=== PATIENT | male | born 1955 | race Caucasian/White ===

== ENCOUNTER 2017-03-24 20:31 | Emergency (ER) | payer OTHER ==
--- NOTE | 2017-03-24 23:44 | ED ---
Laceration/Wound HPI - HPI Summary HPI Summary: weaning himself from Coumadin on the Lovenox in preparation of a colonoscopy-4 weeks ago his INR was to low and his PCP had been increasing his coumadin--- Gave self an injection of Lovenox in right side of abdomen -area has continued to bruise and drip blood all day - History of Current Complaint Chief Complaint: oozing blood from Lovenox injection Stated Complaint: BELLY LAC Time Seen by Provider: 03/24/17 23:20 Hx Obtained From: Patient Mechanism of Injury: Other - injection of Lovenox this morning Onset/Duration: Sudden Onset, Lasting Hours, Still Present Aggravating: Nothing Alleviating: Nothing Timing: Constant Onset Severity: Moderate Current Severity: Mild Pain Intensity: 0 Associated Signs & Symptoms: Bruising Related Hx: Anticoagulat Use - Allergy/Home Medications Allergies/Adverse Reactions: Allergies Allergy/AdvReac Type Severity Reaction Status Date / Time No Known Allergies Allergy Verified 06/10/13 15:14 PMH/Surg Hx/FS Hx/Imm Hx Previously Healthy: No Endocrine/Hematology History: Reports: Hx Anticoagulant Therapy - WARFARIN Denies: Hx Diabetes Cardiovascular History: Reports: Hx Angina - TIGHTNESS IN THE PAST, Hx Hypertension, Hx Pacemaker/ICD - TODAY 08/02/2014, Hx Valvular Heart Disease - MITRAL VALVE REGURGITATION, REPAIR Denies: Hx Coronary Artery Disease, Hx Hypercholesterolemia, Hx Myocardial Infarction Respiratory History: Denies: Hx Asthma, Hx Chronic Obstructive Pulmonary Disease (COPD) - Surgical History Surgery Procedure, Year, and Place: MITRAL VALVE REPAIR 2013 Hx Anesthesia Reactions: No Infectious Disease History: Reports: Hx Hepatitis Denies: Traveled Outside the [place] in Last 30 Days - Family History Known Family History: Positive: Hypertension - Social History Occupation: Employed Full-time Lives: With Family Alcohol Use: Weekly Alcohol Amount: 2 GL WINE Hx Substance Use: No Substance Use Type: Reports: None Smoking Status (MU): Former Smoker Review of Systems Constitutional: Negative Eyes: Negative ENT: Negative Cardiovascular: Negative Respiratory: Negative Gastrointestinal: Negative Genitourinary: Negative Musculoskeletal: Negative Positive: Bruising - 4 cm diameter oozing bruise on right side of abdomen Neurological: Negative Psychological: Normal All Other Systems Reviewed And Are Negative: Yes Physical Exam - Summary Physical Exam Summary: 61 y/o mALE HOW HAS RECENTLY STARTED lOVENOX TO WEAN OFF OF COUMADIN DUE TO UPCOMING COLONOSCOPY, PATIENT GAVE HIMSELF lOVENOX INJECTION TODAY--THE AREA ON THE RIGHT SIDE OF HIS ABDOMEN CONTINUES TO OOZE BLOOD AND IS ABOUT 4 CM IN DIAMETER Triage Information Reviewed: Yes Vital Signs On Initial Exam: Initial Vitals Temp Pulse Resp BP Pulse Ox 98.3 F 60 16 117/70 100 03/24/17 20:55 03/24/17 20:55 03/24/17 20:55 03/24/17 20:55 03/24/17 20:55 Vital Signs Reviewed: Yes Appearance: Positive: Well-Appearing, No Pain Distress, Well-Nourished Skin: Positive: Warm, Skin Color Reflects Adequate Perfusion, Dry, Other - MULTIPLE BRUISES SECONDAY TO lOVENOX IN ABDOMEN Head/Face: Positive: Normal Head/Face Inspection Eyes: Positive: Normal ENT: Positive: Normal ENT inspection, Hearing grossly normal. Negative: Nasal congestion, Nasal drainage, Muffled/hoarse voice, Dental tenderness Neck: Positive: Supple, Nontender, No Lymphadenopathy Respiratory/Lung Sounds: Positive: Clear to Auscultation, Breath Sounds Present Cardiovascular: Positive: Normal, RRR, Pulses are Symmetrical in both Upper and Lower Extremities Abdomen Description: Positive: Nontender, No Organomegaly, Soft Bowel Sounds: Positive: Present Musculoskeletal: Positive: Normal, Strength/ROM Intact Neurological: Positive: Normal, Sensory/Motor Intact, Alert, Oriented to Person Place, Time Psychiatric: Positive: Normal AVPU Assessment: Alert - Gilmar Coma Scale Best Eye Response: 4 - Spontaneous Best Motor Response: 6 - Obeys Commands Best Verbal Response: 5 - Oriented Diagnostics - Vital Signs Vital Signs Temp Pulse Resp BP Pulse Ox 03/24/17 22:23 98 F 60 16 110/69 94 03/24/17 20:55 98.3 F 60 16 117/70 100 - Laboratory Result Diagrams: 03/25/17 00:17 03/25/17 00:17 Lab Statement: Any lab studies that have been ordered have been reviewed, and results considered in the medical decision making process. Laceration Repair Course/Dx - Course Assessment/Plan: continue with Lovenox and coumidin taper per md order,, Reeducatioed on manufacturers reccomendation for administration on Lovenox, foloow in 1-2 days with pcp - Differential Dx Differental Diagnoses: Cellulitis, Healing Wound, Hematoma, Puncture Wound - Clinical Impression Provider Diagnoses: Contusion of abdominal wall, History of atrial fibrillation - Physician Notifications Discussed Care Of Patient With: Kavon Leo - reviwed case with MD and reviewed labs prior to discharge Discharge - Discharge Plan Condition: Stable Disposition: HOME Patient Education Materials: Enoxaparin (By injection), Contusion in Adults (ED ) Referrals: Jannie Willoughby MD [Primary Care Provider] - If Needed
[2017-03-25 00:41] LABS: Hematocrit 42 % (42-52); Hemoglobin 14.2 g/dl (14.0-18.0); Mean Corpuscular HGB Conc 34 g/dl (31-36); Mean Corpuscular Hemoglobin 30 pg (27-31); Mean Corpuscular Volume 89 fL (80-94); Mean Platelet Volume 8 um3 (7.4-10.4); Red Blood Count 4.67 10^6/ul (4.0-5.4); Red Cell Distribution Width 13 % (10.5-15); White Blood Count 5.9 10^3/ul (3.5-10.8)
[2017-03-25 00:54] LABS: Albumin 4.2 g/dL (3.2-5.2); BUN/Creatinine Ratio 25.8 (8-20); Calcium 9.4 mg/dL (8.6-10.3); EGFR African American 105.5 (>60); EGFR Non-African American 82.1 (>60); Globulin 2.8 g/dL (2-4); Total Bilirubin 0.6 mg/dL (0.2-1.0)
[2017-03-25 01:20] LABS: Potassium 3.9 mmol/L (3.5-5.0)
[2017-03-25 01:29] VITALS: BP 136/93
== END 2017-03-25 01:29 | disposition home or self-care (01) ==
LOC: ED 20:31
DX: S30.1XXA Contusion of abdominal wall, initial encounter (principal); Y92.9 Unspecified place or not applicable; Y84.8 Other medical procedures as the cause of abnormal reaction of the patient, or of later complication, without mention of misadventure at the time of the procedure; Z87.891 Personal history of nicotine dependence; I48.91 Unspecified atrial fibrillation; Z79.01 Long term (current) use of anticoagulants
CPT/HCPCS: 36415; 80053; 85025; 85610; 85730; 99282

== ENCOUNTER 2018-06-16 12:06 | Emergency (ER) | payer OTHER ==
[2018-06-16 12:19] VITALS: BP 127/78
--- NOTE | 2018-06-16 12:46 | UC ---
Lower Extremity/Ankle HPI - HPI Summary HPI Summary: 62-year-old male comes in with a complaint of right foot pain. 6 days ago he dropped his cell phone on his foot is landed on the top of his metatarsals. He had pain right away. He has been able to walk. Walking makes the pain worse. Rest and elevation makes the pain better. He has been taking ibuprofen which helps. He is on a blood thinner. He does have some bruising. No complaint of other injury. No skin break. - History of Current Complaint Chief Complaint: UCLowerExtremity Stated Complaint: FOOT INJURY Time Seen by Provider: 06/16/18 12:25 Pain Intensity: 3 - Allergies/Home Medications Allergies/Adverse Reactions: Allergies Allergy/AdvReac Type Severity Reaction Status Date / Time No Known Allergies Allergy Verified 06/16/18 12:12 PMH/Surg Hx/FS Hx/Imm Hx Cardiovascular History: Atrial Fibrillation Other History Of: Anticoagulant Therapy - WARFARIN - Surgical History Surgical History: Yes Surgery Procedure, Year, and Place: MITRAL VALVE REPAIR 2012. [facility] - Family History Known Family History: Positive: Hypertension Negative: Diabetes - Social History Alcohol Use: Weekly Alcohol Amount: 2 GL WINE Substance Use Type: None Smoking Status (MU): Former Smoker When Did the Patient Quit Smoking/Using Tobacco: 40 years ago - Immunization History Most Recent Influenza Vaccination: UNK Most Recent Tetanus Shot: UNK Most Recent Pneumonia Vaccination: N Review of Systems Constitutional: Negative Skin: Other - SEE HPI Eyes: Negative ENT: Negative Respiratory: Negative Cardiovascular: Negative Gastrointestinal: Negative Motor: Negative Neurovascular: Negative Musculoskeletal: Other: - SEE HPI Neurological: Negative Psychological: Negative Is Patient Immunocompromised?: No All Other Systems Reviewed And Are Negative: Yes Physical Exam Triage Information Reviewed: Yes Appearance: Well-Appearing, No Pain Distress, Well-Nourished Vital Signs: Initial Vital Signs Temp 98.3 F 06/16/18 12:14 Pulse 59 06/16/18 12:14 Resp 18 06/16/18 12:14 BP 127/78 06/16/18 12:14 Pulse Ox 97 06/16/18 12:14 Vital Signs Reviewed: Yes Neck exam: Normal Neck: Positive: Supple Respiratory: Positive: No respiratory distress Musculoskeletal: Positive: Other: - The swelling on the dorsal aspect of the right foot over the metatarsals. It is tender to palpation here. There is some ecchymosis in the toes. Toes and ankle have full range of motion is no sensation deficit there is no skin break. Normal capillary refill. The rest of the foot is nontender to palpation Neurological Exam: Normal Neurological: Positive: Alert, Muscle Tone Normal Psychological Exam: Normal Psychological: Positive: Age Appropriate Behavior Skin: Positive: Other - There is some ecchymosis in the toes. Lower Extremity Course/Dx - Course Course Of Treatment: Order Information: FOOT RIGHT 3+ VWS. Accession Number: [id number]. CPT: 04785. Indication: RIGHT midfoot pain following injury one week ago. Drop cell phone onto distal. RIGHT metatarsal region. Pain and swelling over the bridge of the RIGHT foot. Comparison: No relevant prior exams available on the [facility] [place] for [place]. Technique: AP, lateral, and oblique views RIGHT foot. REPORT AND IMPRESSION: #. Soft tissue swelling over the dorsal aspect of the mid and forefoot. #. Negative for or malalignment. # . Mild osteoarthritis at the first metatarsal phalangeal joint. . <Electronically signed by lAexander Chen MD in OV> 06/16/18 1252. I discussed the x-ray results with the patient. At this time the plan is a post op shoe ice and elevation and rest. Follow-up his primary care doctor if not completely improved. Recheck here sooner if needed. - Differential Dx/Diagnosis Provider Diagnoses: RIGHT FOOT CONTUSION Discharge - Sign-Out/Discharge Documenting (check all that apply): Patient Departure All imaging exams completed and their final reports reviewed: Yes - Discharge Plan Condition: Stable Disposition: HOME Patient Education Materials: Foot Contusion (ED) Referrals: Jannie Willoughby MD [Primary Care Provider] - Additional Instructions: FOLLOW UP WITH YOUR DOCTOR IF NOT COMPLETELY IMPROVED. GET RECHECKED FOR ANY WORSENING OF YOUR CONDITION OR QUESTIONS OR CONCERNS. - Billing Disposition and Condition Condition: STABLE Disposition: Home
--- NOTE | 2018-06-16 12:55 | RAD ---
Indication: RIGHT midfoot pain following injury one week ago. Drop cell phone onto distal RIGHT metatarsal region. Pain and swelling over the bridge of the RIGHT foot. Comparison: No relevant prior exams available on the [facility] PACS for comparison. Technique: AP, lateral, and oblique views RIGHT foot. REPORT AND IMPRESSION: #. Soft tissue swelling over the dorsal aspect of the mid and forefoot. #. Negative for or malalignment. #. Mild osteoarthritis at the first metatarsal phalangeal joint.
== END 2018-06-16 13:30 | disposition home or self-care (01) ==
LOC: UCEAST 12:06
DX: S90.31XA Contusion of right foot, initial encounter (principal); W20.8XXA Other cause of strike by thrown, projected or falling object, initial encounter; Y92.9 Unspecified place or not applicable; M19.071 Primary osteoarthritis, right ankle and foot; I48.91 Unspecified atrial fibrillation; Z79.01 Long term (current) use of anticoagulants; Z95.0 Presence of cardiac pacemaker; Z87.891 Personal history of nicotine dependence
CPT/HCPCS: 99211; G0463